=== PATIENT | female | born 1970 | race Caucasian/White ===

== ENCOUNTER 2022-12-11 22:08 | Inpatient (IN) | payer MEDICARE, MEDICAID ==
[~2022-12-11 22:08] MED LIST: Iopamidol 300 61% 100 ML VIAL FS ONE
[2022-12-11 23:02] LABS: #Monocytes 0.6 10x3/uL (0.0-1.1); #Neutrophils 6.8 10x3/uL (1.5-8.4); %Basophils 0.4 % (0.0-2.0); %Eosinophils 0.4 % (0.0-6.0); %Lymphocytes 18.3 % (18.0-47.0); %Monocytes 6.9 % (0.0-10.0); %Neutrophils 73.7 % (40.0-75.0); Mean Corpuscular HGB CONC 32.5 g/dL (32.0-36.0); Mean Corpuscular Volume 95.2 fl (81.6-98.3); Mean Platelet Volume 9.9 fl (7.4-10.4); Platelet Count 213 10x3/uL (150-450); RBC Distribution Width 13.9 % (11.5-14.5); White Blood Cell (WBC) Count 9.2 10x3/uL (3.5-10.5)
[2022-12-11 23:11] LABS: ALT (SGPT) 15 U/L (8-55); AST (SGOT) 16 U/L (5-34); Alkaline Phosphatase 93 U/L (40-110); Anion Gap 15 mmol/L (10-20); BUN (Urea Nitrogen) 23 mg/dL (9.8-20.1); Bilirubin, Total 0.3 mg/dL (0.2-1.2); Calc. Creatinine Clearance 0 mL/min (70-130); Carbon Dioxide 20 mmol/L (22-29); Chloride 110 mmol/L (98-107); Estimated GFR 71; Globulin 3.3 g/dL (2.4-3.5); Glucose 122 mg/dL (70-105); Lipase 17 U/L (8-78); Protein, Total 7.3 g/dL (6.0-8.3); Sodium 141 mmol/L (136-145)
[2022-12-11 23:17] LABS: Troponin I Less than 0.010 ng/mL (< 0.028)
[2022-12-11 23:22] LABS: PTT 28.6 sec (22.0-33.0)
[2022-12-12] MEDS ORDERED: Ondansetron PF 4 MG/2 ML Vial ONE (00:02)
[2022-12-12] MEDS ORDERED: Morphine 4 MG/ML VIAL ONE (00:02)
[2022-12-12 01:23] LABS: SARS-CoV-2 NAA Rapid Test Not Detected (NotDetected)
[2022-12-12] MEDS ORDERED: cefTRIAXone (ROCEPHIN) 1 GM VIAL ONE (02:12)
[2022-12-12] MEDS ORDERED: Azithromycin 500 MG VIAL ONE (02:12)
[2022-12-12] MEDS ORDERED: Senokot S 8.6-50 MG TAB PO PRN (03:24)
[2022-12-12] MEDS ORDERED: Acetaminophen 325 MG TAB PO PRN (03:24)
[2022-12-12 04:11] LABS: Anion Gap 12 mmol/L (10-20); BUN (Urea Nitrogen) 22 mg/dL (9.8-20.1); Calc. Creatinine Clearance 0 mL/min (70-130); Calcium 8.6 mg/dL (7.8-10.44); Carbon Dioxide 22 mmol/L (22-29); Chloride 111 mmol/L (98-107); Estimated GFR 89; Glucose 102 mg/dL (70-105); Magnesium 1.8 mg/dL (1.6-2.6); Potassium 3.9 mmol/L (3.5-5.1); Sodium 141 mmol/L (136-145)
[2022-12-12 04:19] LABS: #Eosinphils 0.1 10x3/uL (0.0-0.5); #Monocytes 0.6 10x3/uL (0.0-1.1); #Neutrophils 5.4 10x3/uL (1.5-8.4); %Basophils 0.4 % (0.0-2.0); %Eosinophils 0.8 % (0.0-6.0); %Monocytes 7.8 % (0.0-10.0); %Neutrophils 67.7 % (40.0-75.0); Hematocrit 37.9 % (34.9-44.5); Hemoglobin 12.3 g/dL (12.0-15.5); Mean Corpuscular HGB CONC 32.5 g/dL (32.0-36.0); Mean Corpuscular Hemoglobin 31.9 pg (27.0-33.0); Mean Corpuscular Volume 98.2 fl (81.6-98.3); Mean Platelet Volume 9.6 fl (7.4-10.4); Platelet Count 187 10x3/uL (150-450); RBC Distribution Width 14.1 % (11.5-14.5); Red Blood Cell (RBC) Count 3.86 10x6/uL (3.90-5.03); White Blood Cell (WBC) Count 7.9 10x3/uL (3.5-10.5)
[2022-12-12 04:27] VITALS: BMI 71.4
[2022-12-12] MEDS ORDERED: cefTRIAXone\\ROCEPHIN 1 GM in Sodium Chloride 0.9% 100 ML IVPB SCH (04:30)
[2022-12-12 05:24] LABS: Actual Bicarbonate (HCO3a) 20.5 mEq/L (22-28); Base Excess (BEa) -6.1 mEq/L (-2.0 to +3.0); CO2 Tension 44.4 mmHg (35.0-45.0); Calcium, Ionized (arterial) 1.21 mmol/L (1.12-1.30); Carboxyhemoglobin (COHb) 0.3 gm% (0.0-3.0); Hematocrit-ABG 38 % (36.0-47.0); Hemoglobin (Hb) 12.8 g/dL (12.0-16.0); O2 Tension (PaO2), arterial 64.6 mmHg (80.0-100.0); Potassium - ABG Lab 3.93 mmol/L (3.70-5.30); Puncture Site LRA; pH, Arterial 7.282 (7.35-7.45)
[2022-12-12 06:04] LABS: Amphetamine Not Detected (NotDetected); Barbiturates Screen Not Detected (NotDetected); Benzodiazepine Screen Not Detected (NotDetected); Cocaine Metabolite Screen Not Detected (NotDetected); Methadone Not Detected (NotDetected); Methamphetamine Not Detected (NotDetected); Opiate Screen Detected (NotDetected); Oxycodone Screen Not Detected (NotDetected); Phencyclidine (PCP) Not Detected (NotDetected); THC/Cannabinoid Screen Not Detected (NotDetected); Tricyclic Screen Not Detected (NotDetected)
[2022-12-12] MEDS: Apixaban 5 MG TAB PO SCH ×2 (09:08→21:41)
[2022-12-12] MEDS: Topiramate 100 MG TAB PO SCH ×2 (09:08→21:42)
[2022-12-12] MEDS: levETIRAcetam 500 MG TAB PO SCH ×2 (09:08→21:41)
[2022-12-12] MEDS ORDERED: Nystatin Powder 15 GM BOT TOP SCH ×2 (21:00)
[2022-12-12] MEDS: Oxybutynin 5 MG TAB PO SCH (21:41)
[2022-12-12] MEDS: ILOPERIDONE PO SCH (22:27)
[2022-12-13] MEDS ORDERED: cefTRIAXone Sodium 2,000 MG in Syringe 0 ML IVPB SCH (03:30)
[2022-12-13] MEDS ORDERED: Sodium Chloride 0.9% 250 ML 250 ML ONE (04:20)
[2022-12-13] MEDS: Azithromycin 500 MG in Sodium Chloride 0.9% 250 ML 250 ML IVPB SCH (04:26)
[2022-12-13] MEDS: cefTRIAXone\\ROCEPHIN 2 GM in Sodium Chloride 0.9% 100 ML IVPB SCH (04:27)
[2022-12-13] MEDS: Levothyroxine 150 MCG TAB PO SCH (06:24)
[2022-12-13 08:31] LABS: #Eosinphils 0.1 10x3/uL (0.0-0.5); #Monocytes 0.5 10x3/uL (0.0-1.1); #Neutrophils 4.6 10x3/uL (1.5-8.4); %Basophils 0.5 % (0.0-2.0); %Eosinophils 1.1 % (0.0-6.0); %Lymphocytes 21.5 % (18.0-47.0); %Monocytes 6.9 % (0.0-10.0); %Neutrophils 69.8 % (40.0-75.0); Hematocrit 39.8 % (34.9-44.5); Hemoglobin 12.7 g/dL (12.0-15.5); Mean Corpuscular HGB CONC 31.9 g/dL (32.0-36.0); Mean Corpuscular Hemoglobin 31.4 pg (27.0-33.0); Mean Corpuscular Volume 98.5 fl (81.6-98.3); Mean Platelet Volume 9.9 fl (7.4-10.4); Platelet Count 168 10x3/uL (150-450); RBC Distribution Width 13.9 % (11.5-14.5); Red Blood Cell (RBC) Count 4.04 10x6/uL (3.90-5.03); White Blood Cell (WBC) Count 6.5 10x3/uL (3.5-10.5)
[2022-12-13 08:45] LABS: Anion Gap 13 mmol/L (10-20); BUN (Urea Nitrogen) 14 mg/dL (9.8-20.1); Calc. Creatinine Clearance 255 mL/min (70-130); Calcium 9.2 mg/dL (7.8-10.44); Carbon Dioxide 23 mmol/L (22-29); Chloride 110 mmol/L (98-107); Estimated GFR 104; Glucose 92 mg/dL (70-105); Sodium 142 mmol/L (136-145)
[2022-12-13] MEDS: Magnesium Oxide 400 MG TAB PO SCH (10:06)
[2022-12-13] MEDS: Apixaban 5 MG TAB PO SCH ×2 (10:06→20:32)
[2022-12-13] MEDS: Oxybutynin 5 MG TAB PO SCH ×2 (10:06→20:32)
[2022-12-13] MEDS: levETIRAcetam 500 MG TAB PO SCH ×2 (10:06→20:32)
[2022-12-13] MEDS: Bupropion 150 MG XL TAB PO SCH (10:07)
[2022-12-13] MEDS: Prenatal Vitamin 1 TAB PO SCH (10:11)
[2022-12-13] MEDS: Venlafaxine HCl XR 75 MG CAP PO SCH ×2 (10:11)
[2022-12-13] MEDS: Topiramate 100 MG TAB PO SCH ×2 (10:12→20:32)
[2022-12-13] MEDS: valACYclovir 500 MG TAB PO SCH (10:21)
[2022-12-13] MEDS: Modafinil 100 MG TAB PO SCH (10:21)
[2022-12-13] MEDS: ILOPERIDONE PO SCH (20:33)
[2022-12-14] MEDS: cefTRIAXone\\ROCEPHIN 2 GM in Sodium Chloride 0.9% 100 ML IVPB SCH (03:51)
[2022-12-14] MEDS: Azithromycin 500 MG in Sodium Chloride 0.9% 250 ML 250 ML IVPB SCH (04:01)
[2022-12-14 04:09] LABS: Actual Bicarbonate (HCO3v) 24.7 mEq/L (22-28); Base Excess -0.4 mEq/L (-2 - +2); Calcium, Ionized (venous) 1.17 mmol/L (1.16-1.32); Chloride (VBG) 107 mmol/L (98-106); Hematocrit-VBG 39 % (36.0-47.0); Hemoglobin (Hb) 13.4 g/dL (11.7-16.0); Potassium (VBG) 4.02 mmol/L (3.70-5.30); Puncture Site Other Site; Sodium 139.9 mmol/L (133-146); pH (venous) 7.385 (7.32-7.43)
[2022-12-14 04:20] LABS: #Eosinphils 0.1 10x3/uL (0.0-0.5); #Monocytes 0.6 10x3/uL (0.0-1.1); %Basophils 0.5 % (0.0-2.0); %Eosinophils 0.8 % (0.0-6.0); %Lymphocytes 25.8 % (18.0-47.0); %Neutrophils 64.6 % (40.0-75.0); Hematocrit 39.6 % (34.9-44.5); Hemoglobin 12.6 g/dL (12.0-15.5); Mean Corpuscular HGB CONC 31.8 g/dL (32.0-36.0); Mean Corpuscular Hemoglobin 31.5 pg (27.0-33.0); Platelet Count 185 10x3/uL (150-450); RBC Distribution Width 13.8 % (11.5-14.5); White Blood Cell (WBC) Count 7.7 10x3/uL (3.5-10.5)
[2022-12-14 04:32] LABS: Anion Gap 13 mmol/L (10-20); BUN (Urea Nitrogen) 19 mg/dL (9.8-20.1); Calc. Creatinine Clearance 238 mL/min (70-130); Calcium 8.8 mg/dL (7.8-10.44); Carbon Dioxide 24 mmol/L (22-29); Chloride 107 mmol/L (98-107); Estimated GFR 97; Glucose 92 mg/dL (70-105); Potassium 4.2 mmol/L (3.5-5.1); Sodium 140 mmol/L (136-145)
[2022-12-14] MEDS: Levothyroxine 150 MCG TAB PO SCH (06:10)
[2022-12-14] MEDS: Modafinil 100 MG TAB PO SCH (11:57)
[2022-12-14] MEDS: Oxybutynin 5 MG TAB PO SCH ×2 (11:57→20:26)
[2022-12-14] MEDS: Apixaban 5 MG TAB PO SCH ×2 (11:57→20:26)
[2022-12-14] MEDS: Magnesium Oxide 400 MG TAB PO SCH (11:57)
[2022-12-14] MEDS: levETIRAcetam 500 MG TAB PO SCH ×2 (11:58→20:26)
[2022-12-14] MEDS: Prenatal Vitamin 1 TAB PO SCH (11:58)
[2022-12-14] MEDS: Topiramate 100 MG TAB PO SCH ×2 (11:58→20:26)
[2022-12-14] MEDS: Bupropion 150 MG XL TAB PO SCH (11:58)
[2022-12-14] MEDS: Venlafaxine HCl XR 75 MG CAP PO SCH ×2 (11:59)
[2022-12-14] MEDS: valACYclovir 500 MG TAB PO SCH (14:58)
[2022-12-14] MEDS ORDERED: predniSONE 20 MG TAB PO SCH (17:00)
[2022-12-14] MEDS: ILOPERIDONE PO SCH (20:26)
[2022-12-15] MEDS: cefTRIAXone\\ROCEPHIN 2 GM in Sodium Chloride 0.9% 100 ML IVPB SCH (03:35)
[2022-12-15] MEDS: Azithromycin 500 MG in Sodium Chloride 0.9% 250 ML 250 ML IVPB SCH (04:04)
[2022-12-15] MEDS ORDERED: Levothyroxine 150 MCG TAB PO SCH (06:00)
[2022-12-15 06:04] LABS: #Monocytes 0.4 10x3/uL (0.0-1.1); #Neutrophils 6.5 10x3/uL (1.5-8.4); %Basophils 0.5 % (0.0-2.0); %Eosinophils 0.1 % (0.0-6.0); %Monocytes 4.4 % (0.0-10.0); %Neutrophils 80.4 % (40.0-75.0); Hematocrit 41.2 % (34.9-44.5); Hemoglobin 13.6 g/dL (12.0-15.5); Mean Corpuscular Hemoglobin 31.4 pg (27.0-33.0); Mean Corpuscular Volume 95.2 fl (81.6-98.3); Platelet Count 194 10x3/uL (150-450); RBC Distribution Width 13.5 % (11.5-14.5); Red Blood Cell (RBC) Count 4.33 10x6/uL (3.90-5.03); White Blood Cell (WBC) Count 8.1 10x3/uL (3.5-10.5)
[2022-12-15 06:34] LABS: Platelet Adequacy Comment Appears Adequate; RBC Morph Comment Within Normal Limits
[2022-12-15 07:12] LABS: Anion Gap 17 mmol/L (10-20); BUN (Urea Nitrogen) 19 mg/dL (9.8-20.1); Calc. Creatinine Clearance 250 mL/min (70-130); Calcium 9.8 mg/dL (7.8-10.44); Carbon Dioxide 17 mmol/L (22-29); Chloride 110 mmol/L (98-107); Estimated GFR 104; Glucose 113 mg/dL (70-105); Potassium 4.4 mmol/L (3.5-5.1); Sodium 140 mmol/L (136-145)
[2022-12-15] MEDS ORDERED: predniSONE 20 MG TAB PO SCH (08:00)
[2022-12-15] MEDS: Apixaban 5 MG TAB PO SCH (08:48)
[2022-12-15] MEDS: Bupropion 150 MG XL TAB PO SCH (08:48)
[2022-12-15] MEDS: levETIRAcetam 500 MG TAB PO SCH (08:49)
[2022-12-15] MEDS: Venlafaxine HCl XR 75 MG CAP PO SCH ×2 (08:49)
[2022-12-15] MEDS: Modafinil 100 MG TAB PO SCH (08:50)
[2022-12-15] MEDS: Magnesium Oxide 400 MG TAB PO SCH (08:50)
[2022-12-15] MEDS: Oxybutynin 5 MG TAB PO SCH (08:50)
[2022-12-15] MEDS: Topiramate 100 MG TAB PO SCH (08:51)
[2022-12-15] MEDS: Prenatal Vitamin 1 TAB PO SCH (08:51)
[2022-12-15] MEDS: valACYclovir 500 MG TAB PO SCH (10:47)
[2022-12-15 16:32] VITALS: BP 124/81; TEMP 97.8
[2022-12-16] MEDS ORDERED: Azithromycin 500 MG in Sodium Chloride 0.9% 250 ML 250 ML IVPB SCH (04:30)
[2022-12-16] MEDS ORDERED: cefTRIAXone\\ROCEPHIN 2 GM in Sodium Chloride 0.9% 100 ML IVPB SCH (04:30)
== END 2022-12-15 18:00 | disposition home or self-care (01) | DRG 193 ==
LOC: CSHERS 22:08 → CSHTELE 12-12 04:16 → OBSVTOIN 12-13 17:08
PROVIDERS: ADMIT Family Medicine; ATTEND Internal Medicine
PROC: 4A033R1 Measurement of Arterial Saturation, Peripheral, Percutaneous Approach (ICD-10-PCS; principal; 2022-12-12)
DX: J18.9 Pneumonia, unspecified organism (principal); G93.41 Metabolic encephalopathy; J96.01 Acute respiratory failure with hypoxia; Z68.44 Body mass index [BMI] 60.0-69.9, adult; E03.9 Hypothyroidism, unspecified; E66.01 Morbid (severe) obesity due to excess calories; F31.9 Bipolar disorder, unspecified; Z20.822 Contact with and (suspected) exposure to COVID-19; Z98.51 Tubal ligation status; Z90.49 Acquired absence of other specified parts of digestive tract; Z98.890 Other specified postprocedural states
CPT/HCPCS: 36415; 36416; 36600; 70450; 71045; 74177; 80048; 80053; 80306; 82805; 83605; 83690; 83735; 83880; 84443; 84484; 85025; 85379; 85610; 85730; 87040; 87633; 93005; 93306; 94760; 94762; 96374; 96375; 96376; G0378; J0456; J0696; J2270; J2405; J3490; J7050; J7512; Q9967

== ENCOUNTER 2024-11-21 08:15 | Emergency (ER) | payer MEDICARE, MEDICAID ==
[2024-11-21 09:28] LABS: #Basophils 0.03 10x3/uL (0.0-0.2); #Eosinophils 0.04 10x3/uL (0.0-0.5); #Monocytes 0.62 10x3/uL (0.0-1.1); #Neutrophils 6.86 10x3/uL (1.5-8.4); %Basophils 0.3 % (0.0-2.0); %Eosinophils 0.5 % (0.0-6.0); %Lymphocytes 12.0 % (18.0-47.0); %Monocytes 7.2 % (0.0-10.0); %Neutrophils 79.7 % (40.0-75.0); Hematocrit 32.1 % (34.9-44.5); Hemoglobin 10.6 g/dL (12.0-15.5); Mean Corpuscular Hemoglobin 31.7 pg (27.0-33.0); Mean Corpuscular Volume 96.1 fL (81.6-98.3); Platelet Count 189 10x3/uL (150-450); Red Blood Cell (RBC) Count 3.34 10x6/uL (3.90-5.03); White Blood Cell (WBC) Count 8.61 10x3/uL (3.5-10.5)
[2024-11-21 09:44] LABS: ALT (SGPT) 11 U/L (Less than 34); AST (SGOT) 15 U/L (11-34); Albumin 3.2 g/dL (3.1-4.5); Alkaline Phosphatase 72 U/L (40-110); Anion Gap 15 mmol/L (10-20); BUN (Urea Nitrogen) 21 mg/dL (9.8-20.1); Bilirubin, Total 0.3 mg/dL (0.3-1.2); CK (CPK) 115 U/L (29-168); Calc. Creatinine Clearance 0 mL/min (70-130); Calcium 8.3 mg/dL (7.8-10.44); Carbon Dioxide 20 mmol/L (22-29); Chloride 112 mmol/L (98-107); Globulin 3.1 g/dL (2.4-3.5); Glucose 136 mg/dL (70-105); Lipase 12 U/L (8-78); Potassium 3.3 mmol/L (3.5-5.1); Sodium 144 mmol/L (136-145)
[2024-11-21 09:45] LABS: Troponin I Less than 0.010 ng/mL (< 0.028)
[2024-11-21] MEDS ORDERED: Acetaminophen 500 MG TAB ONE (09:57)
[2024-11-21] MEDS ORDERED: Iopamidol 300 61% 100 ML VIAL FS ONE (09:58)
== END 2024-11-21 22:41 ==
LOC: CSHERS 08:15
DX: S82.54XA Nondisplaced fracture of medial malleolus of right tibia, initial encounter for closed fracture (principal); E03.9 Hypothyroidism, unspecified; K21.9 Gastro-esophageal reflux disease without esophagitis; E66.9 Obesity, unspecified; W18.30XA Fall on same level, unspecified, initial encounter; Z86.711 Personal history of pulmonary embolism; Z79.01 Long term (current) use of anticoagulants
CPT/HCPCS: 29515; 70450; 71260; 73610; 74177; 80053; 82550; 83605; 83690; 84484; 85025; 93005; 99285; Q9967; 36415